=== PATIENT | female | born 1990 | race Caucasian/White ===

== ENCOUNTER 2019-04-24 14:18 | Emergency (ER) | payer OTHER ==
[~2019-04-24] VITALS: Ht 149.9 cm; Wt 49.0 kg
[2019-04-24 14:50] VITALS: BP 107/70
== END 2019-04-24 17:59 | disposition left against medical advice (07) ==
LOC: ER 14:18
DX: Z53.21 Procedure and treatment not carried out due to patient leaving prior to being seen by health care provider (principal)

== ENCOUNTER 2023-01-13 08:52 | Emergency (ER) | payer OTHER ==
[~2023-01-13] VITALS: Ht 149.9 cm; Wt 55.0 kg
[2023-01-13] MEDS ORDERED: IBUPROFEN 600MG TABLET PO ONE (09:30)
[2023-01-13 09:47] VITALS: BP 109/72
[2023-01-13] MEDS ORDERED: IBUP-2029 MT (10:49)
== END 2023-01-13 11:05 | disposition home or self-care (01) ==
LOC: ER 08:52
DX: S30.0XXA Contusion of lower back and pelvis, initial encounter (principal); W18.30XA Fall on same level, unspecified, initial encounter; Y93.89 Activity, other specified; Y92.89 Other specified places as the place of occurrence of the external cause; Y99.8 Other external cause status
CPT/HCPCS: 72100; 72220; 81025; 99284